=== PATIENT | male | born 1990 | race Two or more races ===

== ENCOUNTER 2018-07-15 13:32 | Outpatient (CLI) | payer OTHER | END 2018-07-15 14:28 | disposition home or self-care (01) | LOC: NUCLEAR 13:32 | DX: C73 Malignant neoplasm of thyroid gland (principal) | CPT/HCPCS: A9528; 78018; 78020 ==

== ENCOUNTER 2018-07-31 09:57 | Emergency (ER) | payer OTHER ==
[~2018-07-31] VITALS: Ht 175.3 cm; Wt 81.6 kg
[2018-07-31] MEDS ORDERED: SYNTHROID137 MCG (10:09)
[2018-07-31] MEDS ORDERED: PNEU16DI2 (10:09)
== END 2018-07-31 14:40 | disposition home or self-care (01) ==
LOC: ER 09:57
DX: E05.80 Other thyrotoxicosis without thyrotoxic crisis or storm (principal); R42 Dizziness and giddiness

== ENCOUNTER 2019-11-16 07:40 | Emergency (ER) | payer OTHER ==
[~2019-11-16] VITALS: Ht 175.3 cm; Wt 85.3 kg
[~2019-11-16 07:40] MED LIST: PNEU16DI2; SYNTHROID137 MCG
== END 2019-11-16 14:16 | disposition home or self-care (01) ==
LOC: ER 07:40
DX: K52.89 Other specified noninfective gastroenteritis and colitis (principal)

== ENCOUNTER 2022-01-20 09:55 | Emergency (ER) | payer OTHER ==
[~2022-01-20] VITALS: Ht 175.3 cm; Wt 87.1 kg
[2022-01-20] MEDS ORDERED: SYNTHROID175 MCG (10:04)
[2022-01-20] MEDS ORDERED: SYNTHROID200 MCG (10:04)
== END 2022-01-20 14:21 | disposition home or self-care (01) ==
LOC: ER 09:55
DX: B34.9 Viral infection, unspecified (principal); Z20.822 Contact with and (suspected) exposure to COVID-19; R07.89 Other chest pain

== ENCOUNTER 2022-11-13 09:16 | Emergency (ER) | payer OTHER ==
[~2022-11-13] VITALS: Ht 172.7 cm; Wt 82.1 kg
[~2022-11-13 09:16] MED LIST changes: +SYNTHROID175 MCG; +SYNTHROID200 MCG
[2022-11-13] MEDS ORDERED: AMOXICILLIN500 M1 PO (10:50)
== END 2022-11-13 10:57 | disposition home or self-care (01) ==
LOC: ER 09:16
DX: J02.9 Acute pharyngitis, unspecified (principal); Z20.822 Contact with and (suspected) exposure to COVID-19